=== PATIENT | male | born 1975 | race Caucasian/White ===

== ENCOUNTER 2016-11-05 19:07 | Emergency (ER) | payer OTHER ==
--- NOTE | ~2016-11-05 | CR126 ---
STS. [facility] A Service of [facility] & [facility] RADIOLOGY TEXT RESULTS PATIENT: JOSETTE LOPEZ LOCATION: SED : 79 UNIT #: [id number] AGE: [address]: Surinder Florez SEX: M ORDER DR: [id number] [place] [id number] E MR#: [id number] Acc #: [id number] NAME: JOSETTE LOPEZ : 1975 SEX: M STUDY DATE/TIME: 11/05/2016 19:04 UNIT: SED ROOM: STUDY DESCRIPTION: CR Foot Complete Min 3 View Lt Attending Physician: Surinder Florez P.A.-C. Ordering Physician: Surinder Florez P.A.-C. Primary Care Physician: Primary Care Physician No MEDICAL IMAGING REPORT This report is preliminary unless electronic signature is present. EXAM Left foot 3 views, 11/05/2016 HISTORY Foot pain. Puncture wound. Stepped on a nail today. FINDINGS The tarsal, metatarsal, and phalangeal elements are all anatomically normal in position and alignment. There are no articular defects. No fractures or radiopaque foreign bodies in the soft tissues are apparent. IMPRESSION Normal foot. Dictated by... Albert Booth M.D. THIS IS AN ELECTRONICALLY VERIFIED REPORT Albert Booth M.D. at 11/06/2016 2:41 PM DFL/aleida TD: 11/06/2016 00:25 JOB #: [id number] MEDICAL IMAGING REPORT Page 1 of 1
[~2016-11-05 19:07] MED LIST: ELIMITE60 G1; MOBIC PO; NO MEDICATIONS
== END 2016-11-05 20:04 | disposition home or self-care (01) ==
LOC: SED 19:07
DX: S91.332A Puncture wound without foreign body, left foot, initial encounter (principal); F17.210 Nicotine dependence, cigarettes, uncomplicated; Z88.0 Allergy status to penicillin; W45.0XXA Nail entering through skin, initial encounter; Y92.009 Unspecified place in unspecified non-institutional (private) residence as the place of occurrence of the external cause
CPT/HCPCS: 73630; 99283

== ENCOUNTER 2017-04-04 13:58 | Emergency (ER) | payer OTHER | END 2017-04-04 16:15 | disposition home or self-care (01) | LOC: SED 13:58 | DX: S05.01XA Injury of conjunctiva and corneal abrasion without foreign body, right eye, initial encounter (principal); F17.200 Nicotine dependence, unspecified, uncomplicated; X58.XXXA Exposure to other specified factors, initial encounter; Y92.69 Other specified industrial and construction area as the place of occurrence of the external cause; Y99.0 Civilian activity done for income or pay | CPT/HCPCS: 99283 ==